=== PATIENT | male | born 1995 | race Caucasian/White ===

== ENCOUNTER 2018-04-03 08:55 | Day surgery (SDC) | payer MEDICAID, SELFPAY ==
--- NOTE | 2018-04-03 | ADN_PTH ---
PATIENT: JOSE MARX [place] [facility] [place][id number] AGE/SX: 22/M ROOM: RE04/03/[address]: Baldemar Bingham MD : [id number] BED: DIS: 04/03/2018 SPEC #: [id number] RECD: 04/03/18 11:52 STATUS: THOM JUAN #: [id number] NAKIA: 04/03/18 00:[address]: Baldemar Bingham DEPT: SURGICAL PATHOLOGY RECD BY: Lubna Escobedo ENTERED: 04/05/18 11:52 SP TYPE: Adenoids OTHR DR: Dr. Max Moran MD Tissues: Adenoid, NOS Procedures: Surgery Specimen Level III HEADER OPERATION: Adenoidectomy PRE-OP DIAGNOSIS: Hypertrophic adenoids, adenoiditis TISSUE SUBMITTED: Adenoids MICROSCOPIC DIAGNOSIS Adenoids: Reactive lymphoid hyperplasia, consistent with chronic adenoiditis. SJ:dave 04/05/18 MICROSCOPIC DESCRIPTION Slides are reviewed. GROSS DESCRIPTION Received is one container labeled with the patient's name and designated adenoids. The specimen consists of multiple irregular fragments of pink-cruz, smooth, glistening and somewhat lobulated soft tissue that in aggregate weigh 2.3 gm and measure 3 x 2.5 x 3 cm. The entire specimen is submitted in one cassette. / SJ:rg 04/03/18 TC:5 CPT: 18175
--- NOTE | 2018-04-03 08:55 | DT_ITS ---
This patient was seen during an EMR downtime March 31, 2018 - April 07, 2018. This patient may have a combination of paper and electronic documentation or all paper documentation. All documentation is viewable within the e-chart portion of [facility] for each patient visit.
== END 2018-04-03 13:30 | disposition home or self-care (01) ==
LOC: SDC 09:02 → AC 09:09
PROVIDERS: Family Provider Family Medicine; PCP Family Medicine; Visit Provider Otolaryngology Otolaryngology/Facial Plastic Surgery
PROC: (CPT 42800; principal; 2018-04-03 10:15)
DX: H65.22 Chronic serous otitis media, left ear (principal); R06.83 Snoring; F90.9 Attention-deficit hyperactivity disorder, unspecified type; F70 Mild intellectual disabilities; F41.9 Anxiety disorder, unspecified; F32.9 Major depressive disorder, single episode, unspecified; Z79.899 Other long term (current) drug therapy
CPT/HCPCS: 00170; 42800; 69436; 88304; J7120; J2405

== ENCOUNTER → 2024-02-24 | Outpatient (CLI) | payer MEDICARE, MEDICAID, SELFPAY ==
[2024-02-24 12:08] LABS: Vitamin D,25 Hydroxy 25.8 ng/mL
[2024-02-24 12:49] LABS: ALB/GLOB Ratio 0.9 RATIO (0.9-2.4); AST(SGOT) 60 U/L (15-37); Alanine Aminotransfer ALT/SGPT 122 U/L (16-61); Albumin, Serum 3.5 g/dL (3.2-5.0); Alkaline Phosphatase 61 U/L (45-117); Anion Gap 6 (5-15); BUN 8 mg/dL (7-18); BUN/Creat Ratio 13.1 RATIO (10-20); Calcium,Total 9.2 mg/dL (8.5-10.1); Chloride 105 mmol/L (98-107); Cholesterol 189 mg/dL (200); Creatinine, Serum 0.61 mg/dL (0.70-1.30); EST Glomerular Filtration Rate 167 mL/min (>60); Est Glom Filt Rate - Afr Amer 202 mL/min (>60); Globulin 3.9 g/dL (2.2-4.2); Glucose 184 mg/dL (74-106); High Density Lipoprotein 38 mg/dL; Protein, Total 7.4 g/dL (6.4-8.2); Sodium Level 139 mmol/L (136-145); Thyroid Stim Hormone (TSH) 1.08 uIU/mL (0.358-3.74); Triglycerides 185 mg/dL; Very Low Density Lipoprotein 37 mg/dL (5-40)
[2024-02-24 13:38] LABS: Microalbumin:Creatinine Ratio 187.7 mg/g CRE (<30 mg/g CRE)
== END | disposition home or self-care (01) ==
LOC: LAB 10:50
PROVIDERS: PCP Family Medicine; Referring Provider Nurse Practitioner Family; Visit Provider Nurse Practitioner Family
DX: E11.9 Type 2 diabetes mellitus without complications (principal); E55.9 Vitamin D deficiency, unspecified
CPT/HCPCS: 36415; 80053; 80061; 82043; 82306; 82570; 84443